=== PATIENT | female | born 2000 | race Caucasian/White ===

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

== ENCOUNTER → 2021-12-02 | Emergency (ER) | payer MEDICAID ==
[~2021-12-02] VITALS: Ht 160 cm; Wt 72.6 kg
[~2021-12-02] MED LIST: D-ME118S48 PO; OSEL75CA PO
[2021-12-02 22:50] VITALS: BP_SYST 132
--- NOTE | 2021-12-02 22:50 | NUR ---
Patient triaged and placed in the tent. VSS and patient appears in no acute distress at this time. Accompanied by boyfriend, awaiting available bed, and MD notified of need for MSE.
--- NOTE | 2021-12-03 00:25 | NUR ---
ER examining patient in the tent.
--- NOTE | 2021-12-03 00:51 | NUR ---
Patient given written and verbal discharge instructions and verbalizes understanding. ER MD discussed with patient the results and treatment provided. Patient in stable condition. ID arm band removed. Rx of Tamiflu,Bromfed DM cough syrup given. Patient educated on pain management and to follow up with PMD. Pain Scale 7/10. Opportunity for questions provided and answered. Medication side effect fact sheet provided.
[2021-12-03 00:54] VITALS: BP_SYST 129
== END | disposition home or self-care (01) ==
LOC: SED 22:45
DX: U07.1 COVID-19 (principal); J10.1 Influenza due to other identified influenza virus with other respiratory manifestations; R05.9 Cough, unspecified; R51.9 Headache, unspecified; R50.9 Fever, unspecified
CPT/HCPCS: 36415; 81025; 99283